=== PATIENT | male | born 1955 | race Caucasian/White ===

== ENCOUNTER 2021-12-23 19:19 | Emergency (ER) | payer MEDICARE ==
[~2021-12-23] VITALS: Ht 180.3 cm; Wt 81.7 kg
[2021-12-23] MEDS ORDERED: LOSA25 (20:59)
[2021-12-23] MEDS ORDERED: ROSUVASTATIN CA10 MG PO (20:59)
[2021-12-23] MEDS ORDERED: LOSARTAN POTASSIUM (20:59)
[2021-12-23 21:55] LABS: Chloride (POC) 102 mmol/L (98-108); Creatinine (POC) 0.9 mg/dL (0.8-1.3); Glucose (ISTAT POC) 85 mg/dL (70-99); Hemoglobin (POC) 15.3 g/dL (13.5-17.5); Potassium (POC) 4.3 mmol/L (3.5-5.5); Sodium (POC) 140 mmol/L (135-148); Total CO2 (POC) 26 mmol/L (21-32)
[2021-12-23] MEDS ORDERED: IBU800 MG PO (23:30)
== END 2021-12-23 23:42 | disposition home or self-care (01) ==
LOC: ER 19:19
PROVIDERS: Physician Assistant
DX: S30.811A Abrasion of abdominal wall, initial encounter (principal); W30.9XXA Contact with unspecified agricultural machinery, initial encounter
CPT/HCPCS: 71260; 73562-LT; 74177; 80047; 85014; A9270; Q9967

== ENCOUNTER 2022-11-26 06:20 | Day surgery (SDC) | payer OTHER ==
[2022-11-26] VITALS (21 sets, daily range): BP systolic 70–142; BP diastolic 44–105
[~2022-11-26] VITALS: Ht 180.3 cm; Wt 85.7 kg
[~2022-11-26 06:20] MED LIST: ALGAL OMEGA-3200 MG PO; Aspir 8181 MG PO; Calcium Carbon500 MG PO; IBU800 MG PO; LOSA25; LOSA50 PO; LOSARTAN POTASSIUM; METO25ER PO; ROSUVASTATIN CA10 MG PO; Saw Palmetto160 MG; THERA-D2000 UNIT PO
--- NOTE | 2022-11-26 07:34 | NUR ---
PT TOLERATED MARCO A AND 150 J SYNCHRONIZED SHOCK WELL.
--- NOTE | 2022-11-26 07:56 | NUR ---
PT DENIES CHEST PAIN; CALL LIGHT IN REACH.
[2022-11-26] MEDS ORDERED: ELIQUIS5 M2 PO (08:16)
--- NOTE | 2022-11-26 08:32 | NUR ---
DR URRUTIA IN ROOM. PT DENIES DIZZINESS.
--- NOTE | 2022-11-26 09:05 | NUR ---
DISCHARGE INSTRUCTIONS REVIEWED ALL QUESTIONS ANSWERED. 20 G IV DISCONTINUED FROM LEFT AC WITH INTACT CANNULA. PT ESCORTED OUT VIA WHEELCHAIR ESCORT.
== END 2022-11-28 22:47 | disposition home or self-care (01) ==
LOC: MHTC 06:20
DX: I48.19 Other persistent atrial fibrillation (principal); I10 Essential (primary) hypertension
CPT/HCPCS: 92960; 93005; 93010; 93312; 93325; 99152; A9270; J2001; J2704

== ENCOUNTER 2022-12-22 11:47 | Day surgery (SDC) | payer OTHER ==
[~2022-12-22] VITALS: Ht 180.3 cm; Wt 82.5 kg
[~2022-12-22 11:47] MED LIST changes: +ELIQUIS5 M2 PO
[2022-12-22] MEDS ORDERED: FISH OIL 1,0001 EA10 (12:06)
[2022-12-22] MEDS ORDERED: [UNRECOGNIZED DRUG - OTHER] (12:06)
[2022-12-22 14:39] VITALS: BP 99/66
== END 2022-12-22 14:37 | disposition home or self-care (01) ==
LOC: ORSCSDS 11:47
PROVIDERS: Internal Medicine Gastroenterology
PROC: 0DBK8ZX Excision of Ascending Colon, Via Natural or Artificial Opening Endoscopic, Diagnostic (ICD-10-PCS; principal; 2022-12-22 13:00)
DX: Z12.11 Encounter for screening for malignant neoplasm of colon (principal); Z86.010 Personal history of colon polyps; D12.2 Benign neoplasm of ascending colon; K64.8 Other hemorrhoids; I48.19 Other persistent atrial fibrillation; I10 Essential (primary) hypertension; Z79.01 Long term (current) use of anticoagulants; E78.5 Hyperlipidemia, unspecified; Z79.899 Other long term (current) drug therapy; E80.4 Gilbert syndrome
CPT/HCPCS: 88305; J2704; J7120

== ENCOUNTER → 2023-07-13 | Outpatient (CLI) | payer OTHER | LOC: LAB 10:33 → LAB SHORT 10:33 | DX: D22.21 Melanocytic nevi of right ear and external auricular canal (principal) ==